=== PATIENT | female | born 1960 | race African-American/Black ===

== ENCOUNTER 2016-09-07 19:00 | Emergency (ER) | payer MEDICAID, OTHER ==
[~2016-09-07] VITALS: Ht 170.2 cm; Wt 68.0 kg
[2016-09-07 19:35] VITALS: BP 132/93
[2016-09-07 20:41] LABS: Basophils # (auto) 0.1 uL; Basophils % (auto) 0.4 % (0.0-2.0); CONDITION Y; DEFINITIVE SEE PRINTOUT; Eosinophils # (auto) 0.1 uL; Hematocrit 53.5 % (36.0-46.0); Hemoglobin 17.8 g/dL (12.2-16.2); Lymphocytes # (auto) 1.9 uL; Lymphocytes % (auto) 14.6 % (10.0-50.0); Mean Corpuscular Hemoglobin 28.2 pg (28.0-32.0); Mean Corpuscular Hgb Conc. 33.2 g/dL (32.0-36.0); Mean Platelet Volume 8.7 fL (7.4-10.4); Monocytes # (auto) 0.9 uL; Monocytes % (auto) 6.6 % (0.0-12.0); Neutrophils # (auto) 10.1 uL; Neutrophils % (auto) 77.4 % (37.0-80.0); Platelet Count (auto) 294 10^3/uL (140-450); Red Cell Distribution Width 13.7 % (11.6-16.0); White Blood Cell 13.1 10^3/uL (4.4-10.8)
[2016-09-07 20:49] LABS: Albumin 3.7 g/dL (3.4-5.0); BUN/Creatinine Ratio 12.7; Calcium 8.4 mg/dL (8.5-10.1); Total Protein 8.2 g/dL (6.4-8.2)
[2016-09-07 20:51] LABS: Bilirubin, Total 0.6 mg/dL (0.2-1.0)
== END 2016-09-07 23:26 | disposition left against medical advice (07) ==
LOC: ER 19:00
DX: M54.9 Dorsalgia, unspecified (principal); Z53.21 Procedure and treatment not carried out due to patient leaving prior to being seen by health care provider
CPT/HCPCS: 36415; 80053; 82962; 85025

== ENCOUNTER 2016-09-08 18:30 | Inpatient (IN) | payer MEDICAID ==
[~2016-09-08] VITALS: Ht 170.2 cm; Wt 69.3 kg
[2016-09-08] MEDS ORDERED: ACCU-CHEK COMFORT CURVE STRIP VI ONE (22:00)
[2016-09-08 22:55] LABS: Albumin 3.3 g/dL (3.4-5.0); Anion Gap 10 (5-15); Aspartate Aminotransferase 18 U/L (15-37); BUN/Creatinine Ratio 24.8; Blood Urea Nitrogen 27 mg/dL (7-18); Calcium 8.2 mg/dL (8.5-10.1); Carbon Dioxide 27 mmol/L (21-32); Chloride 98 mmol/L (98-107); GFR African American 68 mL/min; GFR Non-African American 56 mL/min; Glucose 273 mg/dL (74-106); Potassium 4.5 mmol/L (3.5-5.1); Sodium 135 mmol/L (136-145)
[2016-09-08 22:57] LABS: Basophils # (auto) 0.1 uL; Basophils % (auto) 0.5 % (0.0-2.0); CONDITION Y; DEFINITIVE SEE PRINTOUT; Eosinophils # (auto) 0 uL; Eosinophils % (auto) 0.4 % (0.0-7.0); Hematocrit 53.9 % (36.0-46.0); Hemoglobin 17.4 g/dL (12.2-16.2); Lymphocytes # (auto) 1.7 uL; Lymphocytes % (auto) 15.7 % (10.0-50.0); Mean Corpuscular Hemoglobin 27.5 pg (28.0-32.0); Mean Corpuscular Hgb Conc. 32.2 g/dL (32.0-36.0); Mean Corpuscular Volume 85.5 fL (80.0-100.0); Mean Platelet Volume 8.9 fL (7.4-10.4); Monocytes % (auto) 9.5 % (0.0-12.0); Neutrophils % (auto) 73.9 % (37.0-80.0); Platelet Count (auto) 293 10^3/uL (140-450); White Blood Cell 10.8 10^3/uL (4.4-10.8)
[2016-09-08 22:59] LABS: Alkaline Phosphatase 129 U/L (45-117); Bilirubin, Total 0.7 mg/dL (0.2-1.0); Total Protein 7.5 g/dL (6.4-8.2)
[2016-09-08 23:03] LABS: B-Type Natriuretic Peptide 19.93 pg/mL (0-100)
[2016-09-08 23:07] LABS: INR 1.13 (0.9-1.15); Partial Thromboplastin Time 31.1 sec (22.64-33.71); Prothrombin Time 12.3 sec (9.37-12.3); Temperature: 24.1 C (20.0-25.0)
[2016-09-08 23:19] LABS: Lactic Acid w/Reflex 2.2 mmol/L (0.4-2.0)
[2016-09-08 23:22] LABS: REFLEX LACTIC ACID YES OR NO YES
[2016-09-08] MEDS ORDERED: SODIUM CHLORIDE 0.9% 1,000 ML IV ONE (23:45)
[2016-09-08] MEDS ORDERED: ONDANSETRON HCL 4 MG/2 ML VIAL IV ONE (23:45)
[2016-09-08 23:51] LABS: Allen Test Yes; Blood 02Sat 95.2 % (96-100); Blood COHb 0.9 % (0.5-1.5); Blood MetHb 0.4 % (0.0-1.5); HCO3 26.3 mmol/L (22-26.0); HHb 4.7 % (0.0-5.0); MODE ROOM AIR; PO2 79.2 mmHg (80.0-100.0); PO2(T) 79.2 mmHg (80.0-100.0); Sample Type Arterial; pH 7.436 (7.350-7.450)
[2016-09-08 23:57] LABS: Urine Bilirubin Negative (Negative); Urine Blood TRACE /uL (Negative); Urine Color Yellow (Yellow); Urine Hyaline Cast MANY /lpf (0 - 2); Urine Mucus FEW (None Seen); Urine RBC 16 /hpf (0 - 4); Urine Squamous Epithelial Cell MOD /hpf (<5)
[2016-09-08 23:58] LABS: Urine Glucose 3+ mg/dL (Normal); Urine Ketone 2+ (Negative); Urine Nitrite POSITIVE (Negative)
[2016-09-09] MEDS ORDERED: cloNIDine HCL 0.1 MG TAB PO ONE (06:15)
[2016-09-09] MEDS ORDERED: DEXTROSE (50%) 50ML SYRG IV PRN (06:45)
[2016-09-09] MEDS ORDERED: ACETAMINOPHEN 325 MG TAB PO PRN (06:45)
[2016-09-09] MEDS ORDERED: ONDANSETRON HCL 4 MG/2 ML VIAL IV PRN (06:45)
[2016-09-09] MEDS ORDERED: HYDROcodone-ACET 5/325MG TAB PO PRN (06:45)
[2016-09-09] MEDS ORDERED: cloNIDine HCL 0.1 MG TAB PO PRN (06:45)
[2016-09-09] MEDS: SODIUM CHLORIDE 0.9% 1,000 ML IV SCH ×2 (07:15→19:02)
[2016-09-09] MEDS: cefTRIAXone 1GM/50ML D5W 50 ML IV SCH (08:08)
[2016-09-09] MEDS ORDERED: PANTOPRAZOLE SODIUM 40 MG/10 ML VIAL IV SCH (10:00)
[2016-09-09] MEDS: ENOXAPARIN SOD 40 MG/0.4 ML SYRINGE SC SCH (10:25)
[2016-09-09] MEDS: PANTOPRAZOLE 40 MG TAB PO SCH (11:57)
[2016-09-09] MEDS: ACCU-CHEK COMFORT CURVE STRIP VI SCH ×2 (12:01→18:06)
[2016-09-09] MEDS: InsuLIN REG 1unit/0.01ml Soln (100units/ml) SC SCH ×2 (12:01→18:14)
[2016-09-09 12:19] VITALS: BP 134/70
[2016-09-09 17:01] VITALS: BP 119/69
[2016-09-09] MEDS: MORPHINE SULF INJ 2 MG/ML SYRINGE 1ML IV PRN (19:41)
[2016-09-09 20:00] VITALS: BP 136/75
[2016-09-09 22:00] VITALS: BP 136/75
[2016-09-10] MEDS: ACCU-CHEK COMFORT CURVE STRIP VI SCH ×3 (00:01→11:52)
[2016-09-10] MEDS: InsuLIN REG 1unit/0.01ml Soln (100units/ml) SC SCH ×3 (00:01→11:53)
[2016-09-10 05:00] VITALS: BP 148/90
[2016-09-10 06:01] LABS: Basophils # (auto) 0.1 uL; Basophils % (auto) 0.6 % (0.0-2.0); CONDITION Y; Eosinophils # (auto) 0.2 uL; Eosinophils % (auto) 1.9 % (0.0-7.0); Hemoglobin 14.9 g/dL (12.2-16.2); Lymphocytes % (auto) 24.2 % (10.0-50.0); Mean Corpuscular Hemoglobin 27.6 pg (28.0-32.0); Mean Corpuscular Hgb Conc. 32.4 g/dL (32.0-36.0); Mean Corpuscular Volume 85.3 fL (80.0-100.0); Mean Platelet Volume 8.6 fL (7.4-10.4); Monocytes # (auto) 0.7 uL; Monocytes % (auto) 8.9 % (0.0-12.0); Neutrophils # (auto) 5.2 uL; Neutrophils % (auto) 64.4 % (37.0-80.0); Platelet Count (auto) 245 10^3/uL (140-450); Red Cell Distribution Width 13.9 % (11.6-16.0); White Blood Cell 8.1 10^3/uL (4.4-10.8)
[2016-09-10 06:25] LABS: Albumin 2.8 g/dL (3.4-5.0); BUN/Creatinine Ratio 23.3; Bilirubin, Total 0.4 mg/dL (0.2-1.0); Calcium 8.1 mg/dL (8.5-10.1); Magnesium 2.3 mg/dL (1.6-2.6); Total Protein 6.3 g/dL (6.4-8.2)
[2016-09-10 06:30] LABS: Potassium 4.3 mmol/L (3.5-5.1)
[2016-09-10] MEDS: SODIUM CHLORIDE 0.9% 1,000 ML IV SCH (07:32)
[2016-09-10] MEDS: PANTOPRAZOLE 40 MG TAB PO SCH (08:35)
[2016-09-10] MEDS: cefTRIAXone 1GM/50ML D5W 50 ML IV SCH (08:35)
[2016-09-10] MEDS: MORPHINE SULF INJ 2 MG/ML SYRINGE 1ML IV PRN (08:35)
[2016-09-10] MEDS: ENOXAPARIN SOD 40 MG/0.4 ML SYRINGE SC SCH (08:35)
[2016-09-10 08:52] VITALS: BP 170/90
[2016-09-10 13:00] VITALS: BP 142/78
[2016-09-10] MEDS ORDERED: LEVO500T21 PO (15:59)
[2016-09-10] MEDS ORDERED: LISI-646 PO (15:59)
[2016-09-10] MEDS ORDERED: METF-372 PO (15:59)
[2016-09-10] MEDS ORDERED: LISINOPRIL 10 MG TAB PO ONE (16:15)
[2016-09-10 17:00] VITALS: BP 136/76
[2016-09-10 17:45] VITALS: BP 136/76
== END 2016-09-10 18:55 | disposition home or self-care (01) | DRG 463 ==
LOC: EDBD 18:30 → ER 18:36 → OVERFLOW 18:37 → EAST 09-09 08:34 → WEST WING 09-09 11:00
PROVIDERS: ADMIT Nurse Practitioner; ATTEND Internal Medicine
DX: N39.0 Urinary tract infection, site not specified (principal); N17.0 Acute kidney failure with tubular necrosis; K52.9 Noninfective gastroenteritis and colitis, unspecified; F15.10 Other stimulant abuse, uncomplicated; I12.9 Hypertensive chronic kidney disease with stage 1 through stage 4 chronic kidney disease, or unspecified chronic kidney disease; I70.0 Atherosclerosis of aorta; N18.9 Chronic kidney disease, unspecified; E11.21 Type 2 diabetes mellitus with diabetic nephropathy; B34.9 Viral infection, unspecified; Z90.49 Acquired absence of other specified parts of digestive tract; Z91.14 Patient's other noncompliance with medication regimen; Z72.89 Other problems related to lifestyle; Z71.3 Dietary counseling and surveillance; Z71.51 Drug abuse counseling and surveillance of drug abuser
CPT/HCPCS: 36415; 36600; 71010; 74176; 80053; 80061; 80307; 81001; 82010; 82805; 82962; 83036; 83605; 83690; 83735; 83880; 84484; 85025; 85379; 85610; 85730; 87040; 87086; 93005; 96361; 96365; 96375; J0696; J1815; J2405

== ENCOUNTER 2017-01-30 20:32 | Emergency (ER) | payer MEDICAID ==
[~2017-01-30] VITALS: Ht 167.6 cm; Wt 68.0 kg
[~2017-01-30 20:32] MED LIST: LEVO500T21 PO; LISI-646 PO; METF-372 PO
[2017-01-30 21:05] VITALS: BP 163/75
[2017-01-30] MEDS ORDERED: traMADol HCL 50 MG TAB PO ONE (23:45)
== END 2017-01-31 00:20 | disposition home or self-care (01) ==
LOC: ER 20:32
DX: M25.551 Pain in right hip (principal); M54.16 Radiculopathy, lumbar region; I10 Essential (primary) hypertension; M79.604 Pain in right leg; E11.9 Type 2 diabetes mellitus without complications; F17.210 Nicotine dependence, cigarettes, uncomplicated
CPT/HCPCS: 73502

== ENCOUNTER 2017-04-05 19:16 | Emergency (ER) | payer MEDICAID ==
[~2017-04-05] VITALS: Ht 167.6 cm; Wt 68.0 kg
[2017-04-05 20:18] LABS: Alanine Aminotransferase 42 U/L (13-56); Albumin 3.8 g/dL (3.4-5.0); Anion Gap 10 (5-15); Aspartate Aminotransferase 25 U/L (15-37); BUN/Creatinine Ratio 22.1; Blood Urea Nitrogen 15 mg/dL (7-18); Calcium 8.7 mg/dL (8.5-10.1); Carbon Dioxide 28 mmol/L (21-32); Chloride 97 mmol/L (98-107); GFR African American 116 mL/min; GFR Non-African American 96 mL/min; Glucose 196 mg/dL (74-106); Magnesium 1.9 mg/dL (1.6-2.6); Potassium 3.4 mmol/L (3.5-5.1); Sodium 135 mmol/L (136-145)
[2017-04-05 20:21] LABS: Basophils # (auto) 0.1 uL; Basophils % (auto) 1.2 % (0.0-2.0); Eosinophils # (auto) 0.1 uL; Hematocrit 48.2 % (36.0-46.0); Hemoglobin 15.8 g/dL (12.2-16.2); Lymphocytes # (auto) 1.6 uL; Lymphocytes % (auto) 19.5 % (10.0-50.0); Mean Corpuscular Hemoglobin 28.3 pg (28.0-32.0); Mean Corpuscular Hgb Conc. 32.7 g/dL (32.0-36.0); Mean Corpuscular Volume 86.6 fL (80.0-100.0); Monocytes # (auto) 0.7 uL; Monocytes % (auto) 7.9 % (0.0-12.0); Neutrophils # (auto) 5.8 uL; Neutrophils % (auto) 70.4 % (37.0-80.0); Platelet Count (auto) 269 10^3/uL (140-450); Red Blood Cells 5.57 10^6/uL (4.0-5.20); Red Cell Distribution Width 14.5 % (11.8-14.3); White Blood Cell 8.3 10^3/uL (4.4-10.8)
[2017-04-05 20:23] LABS: Alkaline Phosphatase 75 U/L (45-117); Bilirubin, Total 0.7 mg/dL (0.2-1.0); Total Protein 7.3 g/dL (6.4-8.2)
[2017-04-05] MEDS ORDERED: ONDANSETRON HCL 4 MG/2 ML VIAL IV ONE (22:15)
[2017-04-05] MEDS ORDERED: SODIUM CHLORIDE 0.9% 1,000 ML IV ONE (22:15)
[2017-04-05] MEDS ORDERED: NALBUPHINE HCL 10 MG/1ml INJECTION IV ONE (22:15)
[2017-04-06 01:10] LABS: Amylase 42 U/L (25-115); Lipase 72 U/L (73-393)
[2017-04-06 03:35] VITALS: BP 154/90
[2017-04-06] MEDS ORDERED: HYDROcodone-ACET 10/325MG TAB PO ONE (04:45)
== END 2017-04-06 05:28 | disposition home or self-care (01) ==
LOC: EDBD 19:16 → ER 19:20
DX: R53.1 Weakness (principal); E46 Unspecified protein-calorie malnutrition; F15.10 Other stimulant abuse, uncomplicated; E11.9 Type 2 diabetes mellitus without complications; I10 Essential (primary) hypertension; F17.210 Nicotine dependence, cigarettes, uncomplicated; Z68.24 Body mass index [BMI] 24.0-24.9, adult
CPT/HCPCS: 36415; 71045; 80053; 82150; 83690; 83735; 83880; 84484; 85025; 93005; 96361; 96374; 96375; 99285; J2300; J2405; J7030

== ENCOUNTER 2017-05-15 17:58 | Emergency (ER) | payer MEDICAID ==
[~2017-05-15] VITALS: Ht 172.7 cm; Wt 68.0 kg
[2017-05-15 19:29] LABS: Basophils # (auto) 0.1 uL; Basophils % (auto) 1.2 % (0.0-2.0); Eosinophils # (auto) 0.2 uL; Eosinophils % (auto) 2.7 % (0.0-7.0); Hematocrit 46.4 % (36.0-46.0); Hemoglobin 15.2 g/dL (12.2-16.2); Lymphocytes # (auto) 1.6 uL; Lymphocytes % (auto) 20.3 % (10.0-50.0); Mean Corpuscular Hemoglobin 28.3 pg (28.0-32.0); Mean Corpuscular Hgb Conc. 32.7 g/dL (32.0-36.0); Mean Corpuscular Volume 86.6 fL (80.0-100.0); Monocytes # (auto) 0.5 uL; Monocytes % (auto) 6.7 % (0.0-12.0); Neutrophils # (auto) 5.5 uL; Neutrophils % (auto) 69.1 % (37.0-80.0); Nucleated Red Blood Cells % 0.3 %; Platelet Count (auto) 269 10^3/uL (140-450); Red Blood Cells 5.36 10^6/uL (4.0-5.20); Red Cell Distribution Width 14.4 % (11.8-14.3); White Blood Cell 7.9 10^3/uL (4.4-10.8)
[2017-05-15 19:47] LABS: Albumin 3.9 g/dL (3.4-5.0); BUN/Creatinine Ratio 20.3; Bilirubin, Total 0.2 mg/dL (0.2-1.0); Calcium 8.6 mg/dL (8.5-10.1); Potassium 3.9 mmol/L (3.5-5.1); Total Protein 7.2 g/dL (6.4-8.2)
[2017-05-15] MEDS ORDERED: KETOROLAC TROMETH 60MG/2ML VIAL IM ONE (20:00)
[2017-05-15 20:30] VITALS: BP 151/77
== END 2017-05-15 21:03 | disposition home or self-care (01) ==
LOC: EDBD 17:58 → ER 17:58
DX: G89.4 Chronic pain syndrome (principal); M79.604 Pain in right leg; M54.9 Dorsalgia, unspecified; E11.9 Type 2 diabetes mellitus without complications; I10 Essential (primary) hypertension; Z90.49 Acquired absence of other specified parts of digestive tract; Z79.899 Other long term (current) drug therapy; M81.0 Age-related osteoporosis without current pathological fracture
CPT/HCPCS: 36415; 70450; 80053; 85025; 93005; 96372; 99285; J1885

== ENCOUNTER 2017-07-26 09:45 | Inpatient (IN) | payer MEDICAID ==
[~2017-07-26] VITALS: Ht 165.1 cm; Wt 54.4 kg
[2017-07-26] MEDS ORDERED: SODIUM CHLORIDE 0.9% 1,000 ML IV ONE (10:41)
[2017-07-26] MEDS ORDERED: METOCLOPRAMIDE HCL 5MG/ml INJ 2ml VIAL IV ONE (10:45)
[2017-07-26] MEDS ORDERED: KETOROLAC TROMETH 30 MG/ML 1ML VIAL IV ONE (10:45)
[2017-07-26] MEDS ORDERED: BARIUM SULFATE 98% 340 GM PWDR ONE (11:13)
[2017-07-26] MEDS ORDERED: READI-CAT 2 (BARIUM SULF)(VANILLA SMOOTHIE) 450ML ONE (11:13)
[2017-07-26 12:53] LABS: Basophils # (auto) 0.1 uL; Basophils % (auto) 0.7 % (0.0-2.0); Eosinophils # (auto) 0.1 uL; Eosinophils % (auto) 1.4 % (0.0-7.0); Hematocrit 43.2 % (36.0-46.0); Hemoglobin 14.4 g/dL (12.2-16.2); Lymphocytes # (auto) 0.8 uL; Lymphocytes % (auto) 8.7 % (10.0-50.0); Mean Corpuscular Hemoglobin 28.4 pg (28.0-32.0); Mean Corpuscular Hgb Conc. 33.2 g/dL (32.0-36.0); Mean Corpuscular Volume 85.5 fL (80.0-100.0); Monocytes # (auto) 0.6 uL; Neutrophils # (auto) 7.6 uL; Neutrophils % (auto) 83.2 % (37.0-80.0); Nucleated Red Blood Cells % 0.1 %; Platelet Count (auto) 236 10^3/uL (140-450); Red Blood Cells 5.05 10^6/uL (4.0-5.20); Red Cell Distribution Width 14.8 % (11.8-14.3); White Blood Cell 9.2 10^3/uL (4.4-10.8)
[2017-07-26 13:22] LABS: Albumin 3.5 g/dL (3.4-5.0); BUN/Creatinine Ratio 26.9; Bilirubin, Total 0.2 mg/dL (0.2-1.0); Calcium 8.8 mg/dL (8.5-10.1); Potassium 3.3 mmol/L (3.5-5.1); Total Protein 7.1 g/dL (6.4-8.2)
[2017-07-26] MEDS ORDERED: SODIUM CHLORIDE 0.9% 1,000 ML IV SCH (14:05)
[2017-07-26] MEDS ORDERED: ACETAMINOPHEN 500 MG TAB PO PRN (14:15)
[2017-07-26] MEDS ORDERED: LACTULOSE 20Gm/30ML SOLN PO PRN (14:15)
[2017-07-26] MEDS ORDERED: PROMETHAZINE HCL 25 MG/ML 1ML IV PRN (14:15)
[2017-07-26] MEDS ORDERED: ASPirin 81 mg TAB PO ONE (14:15)
[2017-07-26] MEDS ORDERED: LORazepam 0.5 MG TAB PO PRN (14:15)
[2017-07-26] MEDS ORDERED: NITROGLYCERIN 0.4 MG SL TAB SL PRN (14:15)
[2017-07-26] MEDS ORDERED: HYDROcodone-ACET 5/325MG TAB PO PRN (14:15)
[2017-07-26] MEDS ORDERED: MORPHINE SULFATE 8mg/ml INJ SDV IV PRN ×2 (14:15)
[2017-07-26] MEDS ORDERED: ENOXAPARIN SOD 40 MG/0.4 ML SYRINGE SC ONE (14:15)
[2017-07-26 14:36] LABS: INR 0.93 (0.9-1.15); Partial Thromboplastin Time 29.6 sec (23.78-33.04)
[2017-07-26 14:37] LABS: CRP High Sensitivity 0.09 mg/dL (< 0.3)
[2017-07-26 15:28] LABS: Folate (Folic Acid) 13.42 ng/mL (5.38-24)
[2017-07-26 16:43] LABS: Alcohol, Urine < 3.0 mg/dL (0-5); Barbiturate Scree,Urine NEGATIVE (NEGATIVE); Benzodiazephine Screen, Urine NEGATIVE (NEGATIVE); Cannabinoid Screen, Urine NEGATIVE (NEGATIVE); Cocaine Screen, Urine NEGATIVE (NEGATIVE); Opiate Scree,Urine NEGATIVE (NEGATIVE); Phencyclidine Screen, Urine NEGATIVE (NEGATIVE)
[2017-07-26 16:44] LABS: Amphetamine Screen, Urine POSITIVE (NEGATIVE)
[2017-07-26 17:34] LABS: Urine Bacteria NONE SEEN /hpf (None Seen); Urine Blood Negative /uL (Negative); Urine Mucus FEW (None Seen); Urine Specific Gravity 1.018 (1.001-1.035); Urine WBC 45 /hpf (0 - 5); Urine WBC Clumps PRESENT /hpf (None Seen)
[2017-07-26] MEDS ORDERED: HYDROcodone-ACET 5/325MG TAB PO ONE (20:00)
[2017-07-26] MEDS ORDERED: LORazepam 2MG/ML-1ML VIAL IV PRN (20:00)
[2017-07-26] MEDS: SODIUM CHLORIDE 0.9% 1,000 ML IV SCH (20:06)
[2017-07-26] MEDS: TEMAZEPAM 15 MG CAP PO PRN (21:53)
[2017-07-26 22:00] VITALS: BP 155/82
[2017-07-27] MEDS: HYDROcodone-ACET 10/325MG TAB PO PRN ×3 (03:59→21:42)
[2017-07-27] MEDS ORDERED: cloNIDine HCL 0.1 MG TAB PO ONE (05:00)
[2017-07-27 06:08] VITALS: BP 195/103
[2017-07-27] MEDS: SODIUM CHLORIDE 0.9% 1,000 ML IV SCH (06:25)
[2017-07-27 07:26] LABS: Cholesterol 106 mg/dL (< 200); HDL Cholesterol 42 mg/dL (40-59); LDL Cholesterol 64 mg/dL (< 100); Triglycerides 68 mg/dL (< 150)
[2017-07-27 09:00] VITALS: BP 101/66
[2017-07-27] MEDS: ENOXAPARIN SOD 40 MG/0.4 ML SYRINGE SC SCH (11:08)
[2017-07-27] MEDS: ASPirin 81 mg TAB PO SCH (11:08)
[2017-07-27 13:00] VITALS: BP 176/100
[2017-07-27] MEDS ORDERED: cloNIDine HCL 0.1 MG TAB PO PRN (15:15)
[2017-07-27] MEDS ORDERED: LISINOPRIL 20 MG TAB PO ONE (15:15)
[2017-07-27] MEDS ORDERED: MORPHINE SULFATE 10 MG/ML INJ 1ML SDV IV PRN ×2 (15:30)
[2017-07-27 18:30] VITALS: BP 162/93
[2017-07-27 22:00] VITALS: BP 115/73
[2017-07-27] MEDS: TEMAZEPAM 15 MG CAP PO PRN (22:14)
[2017-07-28] MEDS: SODIUM CHLORIDE 0.9% 1,000 ML IV SCH ×2 (02:12→08:52)
[2017-07-28] MEDS: HYDROcodone-ACET 10/325MG TAB PO PRN ×3 (03:44→16:52)
[2017-07-28 05:00] VITALS: BP 158/92
[2017-07-28 07:23] LABS: Basophils # (auto) 0.1 uL; Basophils % (auto) 1.5 % (0.0-2.0); Eosinophils # (auto) 0.2 uL; Eosinophils % (auto) 3.1 % (0.0-7.0); Hematocrit 37.9 % (36.0-46.0); Hemoglobin 12.5 g/dL (12.2-16.2); Lymphocytes # (auto) 1.7 uL; Lymphocytes % (auto) 24.8 % (10.0-50.0); Mean Corpuscular Hgb Conc. 33.1 g/dL (32.0-36.0); Mean Corpuscular Volume 84.6 fL (80.0-100.0); Monocytes # (auto) 0.5 uL; Monocytes % (auto) 7.1 % (0.0-12.0); Neutrophils # (auto) 4.4 uL; Neutrophils % (auto) 63.5 % (37.0-80.0); Platelet Count (auto) 234 10^3/uL (140-450); Red Blood Cells 4.48 10^6/uL (4.0-5.20); Red Cell Distribution Width 14.6 % (11.8-14.3); White Blood Cell 6.9 10^3/uL (4.4-10.8)
[2017-07-28 07:35] LABS: Calcium 8.5 mg/dL (8.5-10.1); Potassium 3.5 mmol/L (3.5-5.1)
[2017-07-28 08:00] VITALS: BP 161/81
[2017-07-28 09:00] VITALS: BP 161/81
[2017-07-28] MEDS: ASPirin 81 mg TAB PO SCH (09:54)
[2017-07-28] MEDS: ENOXAPARIN SOD 40 MG/0.4 ML SYRINGE SC SCH (09:54)
[2017-07-28] MEDS ORDERED: LISINOPRIL 20 MG TAB PO SCH (10:00)
[2017-07-28 13:00] VITALS: BP 166/91
== END 2017-07-28 17:13 | disposition home or self-care (01) | DRG 347 ==
LOC: ER 09:45 → EDBD 09:45 → TELE 09:46 → TELE-CENTR 18:09
PROVIDERS: ADMIT Internal Medicine; ATTEND Internal Medicine
DX: S32.010A Wedge compression fracture of first lumbar vertebra, initial encounter for closed fracture (principal); I11.9 Hypertensive heart disease without heart failure; R55 Syncope and collapse; E87.6 Hypokalemia; W19.XXXA Unspecified fall, initial encounter; M81.0 Age-related osteoporosis without current pathological fracture; E11.9 Type 2 diabetes mellitus without complications; M54.16 Radiculopathy, lumbar region; G89.29 Other chronic pain; M48.00 Spinal stenosis, site unspecified; Z83.3 Family history of diabetes mellitus; Y93.89 Activity, other specified; Y92.009 Unspecified place in unspecified non-institutional (private) residence as the place of occurrence of the external cause; Z90.49 Acquired absence of other specified parts of digestive tract; Z87.891 Personal history of nicotine dependence; S32.049D Unspecified fracture of fourth lumbar vertebra, subsequent encounter for fracture with routine healing
CPT/HCPCS: 36415; 70450; 70551; 71045; 72131; 80048; 80053; 80061; 80307; 81001; 82550; 82607; 82746; 83735; 83880; 84443; 84484; 85025; 85379; 85610; 85652; 85730; 86141; 93005; 93306; 93886; 94761; 95819; 96361; 96374; 96375; J1885

== ENCOUNTER 2017-10-25 08:26 | Inpatient (IN) | payer MEDICAID ==
[~2017-10-25] VITALS: Ht 165.1 cm; Wt 56.0 kg
[~2017-10-25 08:26] MED LIST changes: -LEVO500T21 PO
[2017-10-25 09:41] LABS: Basophils # (auto) 0.1 uL; Eosinophils # (auto) 0.1 uL; Eosinophils % (auto) 0.7 % (0.0-7.0); Hematocrit 46.4 % (36.0-46.0); Hemoglobin 15.4 g/dL (12.2-16.2); Lymphocytes # (auto) 0.8 uL; Lymphocytes % (auto) 8.5 % (10.0-50.0); Mean Corpuscular Hemoglobin 29.1 pg (28.0-32.0); Mean Corpuscular Hgb Conc. 33.2 g/dL (32.0-36.0); Mean Corpuscular Volume 87.6 fL (80.0-100.0); Monocytes # (auto) 0.4 uL; Monocytes % (auto) 3.9 % (0.0-12.0); Neutrophils # (auto) 7.6 uL; Neutrophils % (auto) 85.9 % (37.0-80.0); Nucleated Red Blood Cells % 0.1 %; Platelet Count (auto) 259 10^3/uL (140-450); Red Cell Distribution Width 14.4 % (11.8-14.3); White Blood Cell 8.9 10^3/uL (4.4-10.8)
[2017-10-25 10:27] LABS: BUN/Creatinine Ratio 16.9; Bilirubin, Total 0.5 mg/dL (0.2-1.0); Calcium 9.2 mg/dL (8.5-10.1); Potassium 3.8 mmol/L (3.5-5.1); Total Protein 8.2 g/dL (6.4-8.2)
[2017-10-25 10:28] LABS: Albumin 4.3 g/dL (3.4-5.0)
[2017-10-25] MEDS ORDERED: SODIUM CHLORIDE 0.9% 1,000 ML IVB ONE (11:08)
[2017-10-25 11:47] LABS: Magnesium 2.2 mg/dL (1.6-2.6)
[2017-10-25] MEDS ORDERED: PROMETHAZINE HCL 25 MG/ML 1ML IV ONE (12:00)
[2017-10-25 12:35] LABS: Urine Bacteria NONE SEEN /hpf (None Seen); Urine Blood Negative /uL (Negative); Urine Hyaline Cast FEW /lpf (0 - 2); Urine Mucus FEW (None Seen); Urine Specific Gravity 1.033 (1.001-1.035); Urine WBC 4 /hpf (0 - 5)
[2017-10-25] MEDS ORDERED: cloNIDine HCL 0.1 MG TAB PO ONE (12:45)
[2017-10-25] MEDS ORDERED: HYDROcodone-ACET 10/325MG TAB PO ONE (12:45)
[2017-10-25] MEDS ORDERED: LISINOPRIL 20 MG TAB PO ONE (14:30)
[2017-10-25] MEDS ORDERED: DEXTROSE (50%) 50ML SYRG IV PRN (14:30)
[2017-10-25] MEDS ORDERED: PANTOPRAZOLE 40 MG/10 ML VIAL IV ONE (14:30)
[2017-10-25] MEDS ORDERED: HYDROcodone-ACET 5/325MG TAB PO PRN (14:30)
[2017-10-25] MEDS ORDERED: MILK OF MAGNESIA 30ML SUSP PO ONE (14:30)
[2017-10-25] MEDS ORDERED: amLODIPine BESYLATE 5 MG TAB PO ONE (14:30)
[2017-10-25] MEDS ORDERED: LABETALOL HCL 5 MG/ML ML 20ML VIAL IV PRN (14:30)
[2017-10-25] MEDS: SODIUM CHLORIDE 0.9% 1,000 ML IV SCH (15:24)
[2017-10-25] MEDS: MORPHINE SULF INJ 2 MG/ML SYRINGE 1ML IV PRN ×2 (15:59→20:29)
[2017-10-25] MEDS: LACTULOSE 20Gm/30ML SOLN PO SCH (18:53)
[2017-10-25 18:54] VITALS: BP 148/105
[2017-10-25] MEDS: InsuLIN REG 1unit/0.01ml Soln (100units/ml) SC SCH (18:54)
[2017-10-25] MEDS: ACCU-CHEK COMFORT CURVE STRIP VI SCH (18:54)
[2017-10-25 20:00] VITALS: BP 97/62
[2017-10-25] MEDS: PROMETHAZINE HCL 25 MG/ML 1ML IV PRN ×2 (20:00→20:28)
[2017-10-25 22:00] VITALS: BP 105/64
[2017-10-26] MEDS: LACTULOSE 20Gm/30ML SOLN PO SCH ×5 (00:57→14:15)
[2017-10-26] MEDS: ACCU-CHEK COMFORT CURVE STRIP VI SCH ×3 (00:58→11:54)
[2017-10-26] MEDS: MORPHINE SULF INJ 2 MG/ML SYRINGE 1ML IV PRN ×3 (01:05→12:34)
[2017-10-26] MEDS ORDERED: METF-370 PO (02:48)
[2017-10-26] MEDS ORDERED: HYDR-531 PO (02:49)
[2017-10-26] MEDS ORDERED: IBUP800T24 PO (02:50)
[2017-10-26] MEDS: SODIUM CHLORIDE 0.9% 1,000 ML IV SCH (04:37)
[2017-10-26 05:00] VITALS: BP 114/79
[2017-10-26] MEDS: InsuLIN REG 1unit/0.01ml Soln (100units/ml) SC SCH ×3 (06:00→11:54)
[2017-10-26 06:02] LABS: Basophils # (auto) 0.1 uL; Basophils % (auto) 1.1 % (0.0-2.0); Eosinophils # (auto) 0.2 uL; Eosinophils % (auto) 2.4 % (0.0-7.0); Hematocrit 38.5 % (36.0-46.0); Hemoglobin 12.9 g/dL (12.2-16.2); Lymphocytes # (auto) 2.4 uL; Lymphocytes % (auto) 28.2 % (10.0-50.0); Mean Corpuscular Hemoglobin 29.2 pg (28.0-32.0); Mean Corpuscular Hgb Conc. 33.5 g/dL (32.0-36.0); Mean Corpuscular Volume 87.3 fL (80.0-100.0); Monocytes # (auto) 0.8 uL; Monocytes % (auto) 9.6 % (0.0-12.0); Neutrophils % (auto) 58.7 % (37.0-80.0); Nucleated Red Blood Cells % 0.1 %; Platelet Count (auto) 224 10^3/uL (140-450); Red Blood Cells 4.41 10^6/uL (4.0-5.20); Red Cell Distribution Width 14.3 % (11.8-14.3); White Blood Cell 8.5 10^3/uL (4.4-10.8)
[2017-10-26 06:17] LABS: Calcium 8.1 mg/dL (8.5-10.1); Potassium 3.5 mmol/L (3.5-5.1)
[2017-10-26 06:19] LABS: BUN/Creatinine Ratio 24.5
[2017-10-26] MEDS: PROMETHAZINE HCL 25 MG/ML 1ML IV PRN ×2 (07:14→12:34)
[2017-10-26 09:00] VITALS: BP 130/74
[2017-10-26] MEDS ORDERED: amLODIPine BESYLATE 5 MG TAB PO SCH (10:00)
[2017-10-26] MEDS ORDERED: PANTOPRAZOLE 40 MG/10 ML VIAL IV SCH (10:00)
[2017-10-26] MEDS ORDERED: LISINOPRIL 20 MG TAB PO SCH (10:00)
[2017-10-26 13:00] VITALS: BP_SYST 118; BP_SYST 136; BP_DIAS 64; BP_DIAS 72
[2017-10-26] MEDS ORDERED: FLEET MINERAL OIL ENEMA 133 ML PR ONE (13:00)
== END 2017-10-26 20:00 | disposition home or self-care (01) | DRG 254 ==
LOC: ER 08:26 → EDBD 08:26 → OVERFLOW 08:27 → WEST WING 18:43
PROVIDERS: ADMIT Internal Medicine; ATTEND Internal Medicine
DX: K59.00 Constipation, unspecified (principal); M48.56XA Collapsed vertebra, not elsewhere classified, lumbar region, initial encounter for fracture; E11.9 Type 2 diabetes mellitus without complications; I10 Essential (primary) hypertension; F17.210 Nicotine dependence, cigarettes, uncomplicated; G89.29 Other chronic pain; M81.0 Age-related osteoporosis without current pathological fracture; Z90.49 Acquired absence of other specified parts of digestive tract; Z79.899 Other long term (current) drug therapy
CPT/HCPCS: 36415; 71045; 74176; 80048; 80053; 81001; 82150; 82962; 83036; 83690; 83735; 85025; 93005; 96361; 96374; C9113; J1815

== ENCOUNTER → 2021-10-22 | Emergency (ER) | payer MEDICAID ==
[~2021-10-22] VITALS: Ht 167.6 cm; Wt 90.0 kg
[~2021-10-22] MED LIST changes: +HYDR-531 PO; +IBUP800T27 PO; -LISI-646 PO; +METF-370 PO; -METF-372 PO
[2021-10-22 20:57] VITALS: BP 186/94
== END | disposition left against medical advice (07) ==
LOC: ER 19:39
DX: Z53.21 Procedure and treatment not carried out due to patient leaving prior to being seen by health care provider

== ENCOUNTER 2023-10-15 15:41 | Emergency (ER) | payer MEDICAID ==
[~2023-10-15] VITALS: Ht 170.2 cm; Wt 81.1 kg
[~2023-10-15 15:41] MED LIST changes: +IBUP-1456 PO; -IBUP800T27 PO
[2023-10-15 16:36] VITALS: BP 147/69; PULSE 89; RESP 16; TEMP 97.7; O2SAT 100
[2023-10-15] MEDS ORDERED: IBUP1TAB5 PO (17:34)
== END 2023-10-15 17:44 | disposition home or self-care (01) ==
LOC: ER 15:41
DX: S92.512A Displaced fracture of proximal phalanx of left lesser toe(s), initial encounter for closed fracture (principal); I10 Essential (primary) hypertension; E11.9 Type 2 diabetes mellitus without complications; Z98.890 Other specified postprocedural states; Z79.899 Other long term (current) drug therapy; W01.0XXA Fall on same level from slipping, tripping and stumbling without subsequent striking against object, initial encounter; Y93.89 Activity, other specified; Y92.89 Other specified places as the place of occurrence of the external cause; Y99.8 Other external cause status
CPT/HCPCS: 73630

== ENCOUNTER 2024-02-23 14:49 | Emergency (ER) | payer MEDICAID ==
[~2024-02-23] VITALS: Ht 170.2 cm; Wt 81.1 kg
[~2024-02-23 14:49] MED LIST changes: +IBUP1TAB5 PO
--- NOTE | 2024-02-23 15:17 | DVH ---
CLINICAL INDICATION: FALL TECHNIQUE: 3 radiographic views of the right hip were obtained. Comparison: None FINDINGS/IMPRESSION: There is no evidence of acute fracture or dislocation. The visualized joint space is well maintained. The alignment is anatomical. There is no radiopaque foreign body.
--- NOTE | 2024-02-23 15:44 | ED.PDOC ---
Raman. trauma (HPI) HPI Comments 63 y.o female presents to the ED fir a chief complaint of right hip pain s/p mechanical fall yesterday. Patient reports she tripped over a sprinkler outside and landed on her right side. Patient is able to bear full weight but does have tenderness. Patient is seen ambulating with steady gait to and from triage to lobby. No head injuries, LOC, nausea or vomiting reported. Chief Complaint: Fall Injury Time Seen by MD: 15:25 Primary Care Provider: [facility] Reviewed notes: Nurses Notes, Medications, Allergies Allergies: Coded Allergies: NO KNOWN ALLERGIES (Unverified , 09/08/16) Home Meds Active Scripts Ibuprofen Micronized (Ibuprofen) 600 Mg Tab, 600 MG PO Q6HPRN PRN for 5 Days, #20 TAB Prov:SALLYMEG E[employer]IPMENT TECH 10/15/23 Reported Medications Ibuprofen (Ibuprofen) 800 Mg Tab, 800 MG PO PRN, MG 10/26/17 Hydrocodone-Acetaminophen ([place] 10-325 mg) 1 Tab Tab, 1 TAB PO PRN, TAB 10/26/17 Metformin Hydrochloride (Metformin Hcl) 500 Mg Tab, 500 MG PO IBID for 30 Days, MG 10/26/17 Information Source: Patient Mode of Arrival: Ambulatory Severity: Moderate Timing: Hours Duration: Since onset Location: (R) Hip Location of laceration: None Mechanism: Fall Associated signs and symtoms: Other Past Medical History PAST MEDICAL HISTORY: DM, HTN Surgical History: Appendectomy, Cholecystectomy, 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 History Family History Family History: Unobtainable Social History Smoker: Non-Smoker Alcohol: Denies ETOH Use Drugs: Denies Drug Use Lives In: Home Constitutional: denies: chills, diaphoresis, fatigue, fever, malaise, sweats, weakness, others EENTM: denies: blurred vision, double vision, ear bleeding, ear discharge, ear drainage, ear pain, ear ringing, eye pain, eye redness, hearing loss, mouth pain, mouth swelling, nasal discharge, nose bleeding, nose congestion, nose pain, photophobia, tearing, throat pain, throat swelling, voice changes, others Respiratory: denies: cough, hemoptysis, orthopnea, SOB at rest, shortness of breath, SOB with excertion, stridor, wheezing, others Cardiovascular: denies: chest pain, dizzy spells, diaphoresis, Dyspnea on exertion, edema, irregular heart beat, left arm pain, lightheadedness, palpitations, PND, syncope, others Gastrointestinal: denies: abdomen distended, abdominal pain, blood streaked bowels, constipated, diarrhea, dysphagia, difficulty swallowing, hematemesis, melena, nausea, poor appetite, poor fluid intake, rectal bleeding, rectal pain, vomiting, others Genitourinary: denies: abnormal vagina bleeding, burning, dyspareunia, dysuria, flank pain, frequency, hematuria, incontinence, pain, , vagina discharge, urgency, others Neurological: denies: dizziness, fainting, headache, left sided numbness, left sided weakness, numbness, paresthesia, pre-existing deficit, right sided numbness, right sided weakness, seizure, speech problems, tingling, tremors, weakness, others Musculoskeletal: reports: others (right hip pain ); denies: back pain, gout, joint pain, joint swelling, muscle pain, muscle stiffness, neck pain Integumetry: denies: bruises, change in color, change in hair/nails, dryness, laceration, lesions, lumps, rash, wounds, others Allergic/Immunocompromised: denies: Difficulty Healing, Frequent Infections, Hives, Itching, others Hematologic/Lymphatic: denies: anemia, blood clots, easy bleeding, easy bruising, swollen glands, others Endocrine: denies: excessive hunger, excessive sweating, excessive thirst, excessive urination, flushing, intolerance to cold, intolerance to heat, unexplained weight gain, unexplained weight loss, others Psychiatric: denies: anxiety, bipolar disorder, depression, hopeless, panic disorder, schizophrenia, sleepless, suicidal, others All Other Systems: Reviewed and Negative Physical Exam General Appearance: Moderate Distress (Moderate distress due to right hip pain concerns.), Obese HEENT: Normal ENT Inspection, Pharynx Normal, TMs Normal Neck: Full Range of Motion, Non-Tender, Normal, Normal Inspection Respiratory: Chest Non-Tender, Lungs Clear, No Accessory Muscle Use, No Respiratory Distress, Normal Breath Sounds Cardiovascular: No Edema, No JVD, No Murmur, No Gallop, Normal Peripheral Pulses, Regular Rate/Rhythm Breast Exam: Deferred Gastrointestinal: No Organomegaly, Non Tender, No Pulsatile Mass, Normal Bowel Sounds, Soft Genitalia: Deferred Pelvic: Deferred Rectal: Deferred Extremities: No calf tenderness, Normal capillary refill, No pedal edema, Other (Diffuse lateral right hip tenderness to palpation throughout. Possible mild ecchymosis noted. Mild reduced range of motion. No crepitus. Patient is able to bear weight.) Musculoskeletal : Location: Right Extremity Location: Hip Apperance: Tenderness: Moderate Neurologic: Alert, No Motor Deficits, Normal Affect, Normal Mood, No Sensory Deficits Cerebellar Function: Normal Reflexes: Normal Skin: Dry, Normal Color, Warm Lymphatic: No Adenopathy Was a procedure done? Was a procedure done?: No Differential Diagnosis Multiple Trauma: Fractures, Contusion X-Ray, Labs, Meds, VS Vital Signs Date Time Temp Pulse Resp B/P (MAP) Pulse Ox O2 Delivery O2 Flow Rate FiO2 02/23/24 16:20 84 16 99 Room Air 02/23/24 16:20 97.7 84 16 146/84 (104) 99 97.7 02/23/24 14:55 98.3 83 16 149/75 (99) 98 Lab Test 02/23/24 14:57 Range/Units POC Glucose 126 H 70-106 mg/dl Current Medications Medications (Trade) Dose Ordered Sig/Dwayne Route Start Time Stop Time Status Last Admin Acetaminophen/ Hydrocodone Bitart ([place] 5/325MG Tab) 1 tab ONCE ONCE PO 02/23/24 15:30 02/23/24 15:31 DC 02/23/24 16:18 X-Ray, Labs, Meds, VS Comment All studies performed the ED today were evaluated by me personally. Right hip imaging studies were unremarkable for any acute fractures. Femoral neck was unremarkable. Patient appears to have suffered a right hip contusion. Advised Tylenol and or Motrin as needed for symptomatic pain relief as well as ice therapy. Time of 1ST Reevaluation: 16:38 Reevaluation 1ST: Improved Consultation: PCP Patient Education/Counseling: Diagnosis, Treatment, Prognosis Family Education/Counseling: Diagnosis, Treatment, No Family Present Departure 1 Departure Time of Disposition: 16:38 Impression: Primary Impression: Contusion of right hip Disposition: HOME / SELF CARE / HOMELESS Condition: Stable Additional Instructions: Advised pain medication as needed for symptomatic relief as well as ice therapy. If symptoms continue, patient will need to follow up with primary care provider for continued evaluation and management. e-Prescriptions Hydrocodone-Acetaminophen (Hydrocodone Bitartrate/AC 5-325 mg) 1 Tab Tab 1 TAB PO Q6HP PRN, #10 TAB Prov: MARIA LUISA CAROLINA PAC 02/23/24 Ibuprofen Micronized (Ibuprofen) 800 Mg Tab 800 MG PO Q8HP PRN, #20 TAB Prov: MARIA LUISA CAROLINA PAC 02/23/24 Discharged With: Self, Friend Critical Care Note Critical Care Time?: No Stability Stability form required: No I personally scribed for MARIA LUISA CAROLINA PAC ([email or web address]) on 02/23/24 at 15:44. Electronically submitted by Michell Smart ([facility]). MARIA LUISA CAROLINA PAC Feb 23, 2024 15:44
[2024-02-23] MEDS: HYDROcodone-ACET 5/325MG TAB PO ONE (16:18)
[2024-02-23 16:20] VITALS: BP 146/84; PULSE 84; RESP 16; TEMP 97.7; O2SAT 99
[2024-02-23] MEDS ORDERED: HYDR-4902 PO (16:39)
[2024-02-23] MEDS ORDERED: IBUP-1455 PO (16:39)
== END 2024-02-23 16:54 | disposition home or self-care (01) ==
LOC: ER 14:49
DX: S70.01XA Contusion of right hip, initial encounter (principal); E11.9 Type 2 diabetes mellitus without complications; I10 Essential (primary) hypertension; Z79.899 Other long term (current) drug therapy; Z90.49 Acquired absence of other specified parts of digestive tract; Z90.89 Acquired absence of other organs; Z98.890 Other specified postprocedural states
CPT/HCPCS: 73502; 82962